=== PATIENT | female | born 1960 | race Caucasian/White ===

== ENCOUNTER 2021-01-01 05:38 | Emergency (ER) | payer SELFPAY ==
--- NOTE | 2021-01-01 05:54 | EDM.PDOC ---
<AlisaBrian Maria Luisa - Last Filed: 01/01/21 06:06> ED HPI GENERAL MEDICAL PROBLEM - General Chief Complaint: General Stated Complaint: [facility] Time Seen by Provider: 01/01/21 05:53 - History of Present Illness INITIAL COMMENTS - FREE TEXT/NARRATIVE: 60-year-old female highly intoxicated brought in by EMS. Apparently the patient was found in the hallway of the apartment complex where she resides. She denies pain at this time. Not much else is known about her situation. Nursing obtained limited history from her brother in [place]. She has a distant history of alcoholism. No routine medications no allergies. When asked questions she will not answer any meaningful way. - Related Data Allergies Allergy/AdvReac Type Severity Reaction Status Date / Time No Known Allergies Allergy Verified 01/01/21 06:02 Home Meds: Home Meds . [No Known Home Meds] 01/01/21 [History] ED ROS GENERAL - Review of Systems Review Of Systems: See Below Reason Not Obtained: Not obtainable due to intoxication ED EXAM, GENERAL - Physical Exam Exam: See Below Exam Limited By: Intoxication General Appearance: No Apparent Distress, Other (The patient does not want much of an exam done.) Head: Other (Several facial abrasions) Neck: Normal Inspection, Supple Respiratory/Chest: No Respiratory Distress, Lungs Clear, Normal Breath Sounds Cardiovascular: Regular Rate, Rhythm, No Edema, No Murmur GI/Abdominal: Normal Bowel Sounds, Soft, Non-Tender Back Exam: No: CVA Tenderness (L), CVA Tenderness (R), Vertebral Tenderness Departure - Departure Disposition: Against Medical Advice 07 Clinical Impression: Acute alcohol intoxication Qualifiers: Complication of substance-induced condition: uncomplicated Qualified Code(s): F10.920 - Alcohol use, unspecified with intoxication, uncomplicated Fall Qualifiers: Encounter type: initial encounter Qualified Code(s): W19.XXXA - Unspecified fall, initial encounter - Discharge Information Referrals: PCP,Not In Area [Primary Care Provider] - Forms: ED Department Discharge <Venu Ruiz - Last Filed: 01/01/21 08:17> Course - Vital Signs Last Recorded V/S: Last Vital Signs Temp 36.0 C L 01/01/21 05:57 Pulse 88 01/01/21 05:57 Resp 16 01/01/21 05:57 BP 117/73 01/01/21 05:57 Pulse Ox 92 L 01/01/21 05:57 - Orders/Labs/Meds Orders: Active Orders 24 hr Category Date Time Status Lactated Ringers [Ringers, Lactated] 1,000 ml Med 01/01/21 06:15 Active IV ASDIRECTED Medication Orders Lactated Ringer's (Ringers, Lactated) 1,000 mls @ 150 mls/hr IV ASDIRECTED BRANDIE Last Admin: 01/01/21 07:57 Dose: 150 mls/hr Documented by: [id number] Labs: Laboratory Tests 01/01/21 01/01/21 01/01/21 Range/Units 06:00 06:00 06:29 WBC (3.98-10.04) K/mm3 RBC (3.98-5.22) M/mm3 Hgb (11.2-15.7) gm/dl Hct (34.1-44.9) % MCV (79.4-94.8) fl MCH (25.6-32.2) pg MCHC (32.2-35.5) g/dl RDW Std Deviation (36.4-46.3) fL Plt Count (182-369) K/mm3 MPV (9.4-12.3) fl Neut % (Auto) (34.0-71.1) % Lymph % (Auto) (19.3-51.7) % [place] % (Auto) (4.7-12.5) % Eos % (Auto) (0.7-5.8) Baso % (Auto) (0.1-1.2) % Neut # (Auto) (1.56-6.13) K/mm3 Lymph # (Auto) (1.18-3.74) K/mm3 [place] # (Auto) (0.24-0.36) K/mm3 Eos # (Auto) (0.04-0.36) K/mm3 Baso # (Auto) (0.01-0.08) K/mm3 PT 10.6 (9.7-12.0) SECONDS INR 0.99 Sodium (136-145) mEq/L Potassium (3.5-5.1) mEq/L Chloride (98-107) mEq/L Carbon Dioxide (21-32) mEq/L Anion Gap (5-15) BUN (7-18) mg/dL Creatinine (0.55-1.02) mg/dL Est Cr Clr Drug Dosing Estimated GFR (MDRD) (>60) mL/min BUN/Creatinine Ratio (14-18) Glucose (70-99) mg/dL Calcium (8.5-10.1) mg/dL Total Bilirubin (0.2-1.0) mg/dL AST (15-37) U/L ALT (14-59) U/L Alkaline Phosphatase (46-116) U/L Total Protein (6.4-8.2) g/dl Albumin (3.4-5.0) g/dl Globulin gm/dL Albumin/Globulin Ratio (1-2) Urine Color Yellow (Yellow) Urine Appearance Clear (Clear) Urine pH 6.0 (5.0-8.0) Ur Specific [place] 1.015 (1.005-1.030) Urine Protein Negative (Negative) Urine Glucose (UA) Negative (Negative) Urine Ketones Negative (Negative) Urine Occult Blood Trace-intact H (Negative) Urine Nitrite Positive H (Negative) Urine Bilirubin Negative (Negative) Urine Urobilinogen 0.2 (0.2-1.0) Ur Leukocyte Esterase 1+ H (Negative) Urine RBC 0-5 (0-5) /hpf Urine WBC 10-20 H (0-5) /hpf Ur Squamous Epith Cells 0-5 (0-5) /hpf Amorphous Sediment Moderate H (NOT SEEN) /hpf Urine Bacteria Moderate H (FEW) /hpf Urine Mucus Few (FEW) /hpf Urine Opiates Screen Negative (SNAZKN=552) Ur Buprenorphine Scrn Negative (CUTOFF=10) Ur Oxycodone Screen Negative (NJL3OQ=374) Urine Methadone Screen Negative (GRVJKI=625) Ur Propoxyphene Screen Negative (SUCEXQ=518) Ur Barbiturates Screen Negative (OBWVXA=466) Ur Tricyclics Screen Negative (BKWTNF=980) Ur Phencyclidine Scrn Negative (CUTOFF=25) Ur Amphetamine Screen Negative (OOMSRG=569) U Methamphetamines Scrn Negative (MLVCQP=087) U Benzodiazepines Scrn Negative (FVOLYA=626) U Cocaine Metab Screen Negative (YHLCWN=562) U Marijuana (THC) Screen Negative (CUTOFF=50) Ethyl Alcohol (0.00) gm% 01/01/21 01/01/21 Range/Units 06:29 06:29 WBC 10.93 H (3.98-10.04) K/mm3 RBC 4.53 (3.98-5.22) M/mm3 Hgb 13.8 (11.2-15.7) gm/dl Hct 41.5 (34.1-44.9) % MCV 91.6 (79.4-94.8) fl MCH 30.5 (25.6-32.2) pg MCHC 33.3 (32.2-35.5) g/dl RDW Std Deviation 45.3 (36.4-46.3) fL Plt Count 354 (182-369) K/mm3 MPV 8.8 L (9.4-12.3) fl Neut % (Auto) 62.4 (34.0-71.1) % Lymph % (Auto) 31.8 (19.3-51.7) % [place] % (Auto) 4.1 L (4.7-12.5) % Eos % (Auto) 0.8 (0.7-5.8) Baso % (Auto) 0.7 (0.1-1.2) % Neut # (Auto) 6.81 H (1.56-6.13) K/mm3 Lymph # (Auto) 3.48 (1.18-3.74) K/mm3 [place] # (Auto) 0.45 H (0.24-0.36) K/mm3 Eos # (Auto) 0.09 (0.04-0.36) K/mm3 Baso # (Auto) 0.08 (0.01-0.08) K/mm3 PT (9.7-12.0) SECONDS INR Sodium 145 (136-145) mEq/L Potassium 3.4 L (3.5-5.1) mEq/L Chloride 109 H (98-107) mEq/L Carbon Dioxide 22 (21-32) mEq/L Anion Gap 17.4 H (5-15) BUN 6 L (7-18) mg/dL Creatinine 0.7 (0.55-1.02) mg/dL Est Cr Clr Drug Dosing TNP Estimated GFR (MDRD) > 60 (>60) mL/min BUN/Creatinine Ratio 8.6 L (14-18) Glucose 90 (70-99) mg/dL Calcium 7.5 L (8.5-10.1) mg/dL Total Bilirubin 0.1 L (0.2-1.0) mg/dL AST 13 L (15-37) U/L ALT 13 L (14-59) U/L Alkaline Phosphatase 83 (46-116) U/L Total Protein 7.2 (6.4-8.2) g/dl Albumin 3.5 (3.4-5.0) g/dl Globulin 3.7 gm/dL Albumin/Globulin Ratio 1.0 (1-2) Urine Color (Yellow) Urine Appearance (Clear) Urine pH (5.0-8.0) Ur Specific [place] (1.005-1.030) Urine Protein (Negative) Urine Glucose (UA) (Negative) Urine Ketones (Negative) Urine Occult Blood (Negative) Urine Nitrite (Negative) Urine Bilirubin (Negative) Urine Urobilinogen (0.2-1.0) Ur Leukocyte Esterase (Negative) Urine RBC (0-5) /hpf Urine WBC (0-5) /hpf Ur Squamous Epith Cells (0-5) /hpf Amorphous Sediment (NOT SEEN) /hpf Urine Bacteria (FEW) /hpf Urine Mucus (FEW) /hpf Urine Opiates Screen (XXELYD=492) Ur Buprenorphine Scrn (CUTOFF=10) Ur Oxycodone Screen (NGW4JL=312) Urine Methadone Screen (GFXZQL=179) Ur Propoxyphene Screen (VUWLFN=320) Ur Barbiturates Screen (JXRMIH=362) Ur Tricyclics Screen (ASSDGT=922) Ur Phencyclidine Scrn (CUTOFF=25) Ur Amphetamine Screen (VNMIGF=458) U Methamphetamines Scrn (FWOBEX=023) U Benzodiazepines Scrn (ITBFBB=381) U Cocaine Metab Screen (ZOSXTG=011) U Marijuana (THC) Screen (CUTOFF=50) Ethyl Alcohol 0.41 (0.00) gm% Meds: Medications Generic Name Dose Route Start Last Admin Trade Name Freq PRN Reason Stop Dose Admin Lactated Ringer's 1,000 mls @ 150 mls/hr 01/01/21 06:15 01/01/21 07:57 Ringers, Lactated IV 150 mls/hr ASDIRECTED BRANDIE Administration Discontinued Medications Generic Name Dose Route Start Last Admin Trade Name Freq PRN Reason Stop Dose Admin Lactated Ringer's 1,000 mls @ 999 mls/hr 01/01/21 06:02 01/01/21 06:34 Ringers, Lactated IV 01/01/21 07:02 999 mls/hr .BOLUS ONE Administration Ondansetron HCl 4 mg 01/01/21 06:02 01/01/21 06:34 Ondansetron 4 Mg/2 Ml Sdv IVPUSH 01/01/21 06:03 4 mg ONETIME ONE Administration - Re-Assessments/Exams Free Text/Narrative Re-Assessment/Exam: 01/01/21 08:13 Care has been assumed from at change of shift. Patient had been sleeping since admission to the ED. She awoke her short time ago and pulled out her IV and is declaring that she is leaving the department. There is no reason to keep her in the ED as she is intoxicated by alcohol only. She is walking around in her room. She is alert oriented and answering questions appropriately. CT of the head reviewed shows ventricles along with the basal cisterns and sulci over the convexities are slightly prominent. No abnormal parenchymal densities are seen. No evidence of intracranial hemorrhage is seen. No midline shift or mass-effect is noted. Bone window settings were reviewed. Visualized paranasal sinuses and mastoid sinuses show nothing acute. Departure - Departure Time of Disposition: 08:16 Condition: Fair Sepsis Event Note (ED) - Focused Exam Vital Signs: Vital Signs Temp Pulse Resp BP Pulse Ox 01/01/21 05:57 36.0 C L 88 16 117/73 92 L
[2021-01-01] MEDS ORDERED: Lactated Ringers 1,000 ML IV ONE (06:02)
[2021-01-01] MEDS ORDERED: Ondansetron 4 MG/2 ML SDV IVPUSH ONE (06:02)
[2021-01-01] MEDS ORDERED: Lactated Ringers 1,000 ML IV SCH (06:15)
--- NOTE | 2021-01-01 08:06 | CT ---
Head CT Technique: Multiple axial sections through the brain were obtained. Intravenous contrast was not utilized. Reconstructed coronal and sagittal images were obtained. Comparison: No prior intracranial imaging is available. Findings: Ventricles along with basal cisterns and sulci over the convexities are slightly prominent. No abnormal parenchymal densities are seen. No evidence of intracranial hemorrhage is seen. No midline shift or mass-effect is seen. Bone window settings were reviewed. Visualized paranasal sinuses and mastoid sinuses show nothing acute. No acute calvarial abnormality is appreciated. Impression: 1. Minimal atrophy. 2. No acute intracranial abnormality is appreciated. Diagnostic code #2
== END 2021-01-01 08:15 | disposition left against medical advice (07) ==
LOC: JD.ED 05:38
DX: S00.81XA Abrasion of other part of head, initial encounter (principal); F10.120 Alcohol abuse with intoxication, uncomplicated; Y90.0 Blood alcohol level of less than 20 mg/100 ml; W19.XXXA Unspecified fall, initial encounter
CPT/HCPCS: 36415; 70450; 80053; 80306; 80307; 81001; 85025; 85610; 96374; 99285; J2405; J7120; 99284

== ENCOUNTER 2021-01-01 16:18 | Emergency (ER) | payer SELFPAY ==
[2021-01-01] MEDS ORDERED: Sodium Chloride 0.9% 1,000 ML IV ONE (16:37)
[2021-01-01] MEDS ORDERED: Metoclopramide 10 MG/2 ML SDV ONE (16:51)
[2021-01-01] MEDS ORDERED: LORazepam 2 MG/ML SDV ONE (16:53)
[2021-01-01] MEDS ORDERED: Metoclopramide 10 MG/2 ML SDV IVPUSH ONE (16:55)
[2021-01-01] MEDS ORDERED: LORazepam 2 MG/ML SDV IV PRN (16:55)
--- NOTE | 2021-01-01 16:57 | EDM.PDOCBH ---
<Brian Cuellar - Last Filed: 01/02/21 05:18> ED HPI GENERAL MEDICAL PROBLEM - General Chief Complaint: Drug or Alcohol Abuse Stated Complaint: [facility] Time Seen by Provider: 01/01/21 16:20 - Related Data Allergies Allergy/AdvReac Type Severity Reaction Status Date / Time No Known Allergies Allergy Verified 01/01/21 06:02 Home Meds: Home Meds . [No Known Home Meds] 01/01/21 [History] COURSE, BEHAVIORAL HEALTH COMP - Course Medical Clearance: 01/02/21 05:11 Patient is awake and alert she was only able to sleep it off and sober up she would like to be discharged now. I have advised the patient against drinking. Departure - Departure Time of Disposition: 05:18 Disposition: Home, Self-Care 01 Clinical Impression: Alcohol abuse - Discharge Information Instructions: Alcohol Use Disorder Referrals: PCP,None [Primary Care Provider] - Forms: ED Department Discharge Additional Instructions: Return to the emergency room with any questions problems or worsening symptoms. See a counselor for this alcoholism. Follow-up at the hospital clinic for recheck early next week. <Venu Ruiz - Last Filed: 01/02/21 06:53> ED HPI GENERAL MEDICAL PROBLEM - General Source of Information: Reports: Patient History Limitations: Reports: No Limitations - History of Present Illness INITIAL COMMENTS - FREE TEXT/NARRATIVE: 60-year-old female once again presents to the ED per [facility]. Apparently she was found passed out or unresponsive near her apartment building today. Note the patient was in the ED overnight due to acute alcohol intoxication and found passed out in the hallway of her apartment where she resides apparently. She has been drinking large quantities of alcohol on a daily basis. Her affect is up and down and she complains bitterly that she is so sad due to recent loss of brother and other friends. She left to the emergency room about 0900 hrs. this morning after she awoke and ripped out her IV with blood all over the room and herself. We cannot detain her as she did not present as a danger to herself or others. Her blood alcohol early this mo rning was 0.41 g%. She reports that she has drank about a pint of whiskey since leaving the department. She denies any nausea vomiting. She denies recently having anything to eat or drink. She denies any hematemesis. She does have chronic loose stools from chronic alcohol use. There is no outward signs of head or facial trauma. Onset: Unknown/Unsure (History suggest she drinks alcohol in large quantities on a daily basis.) Duration: Chronic (Cute on chronic alcohol intoxication.) Location: Reports: Other (Generalized weakness due to intoxication by alcohol.) Quality: Reports: Other Severity: Severe (Dr. Intoxication by alcohol.) Improves with: Reports: None Worsens with: Reports: None Context: Reports: Other (Chronic alcohol abuse on the daily basis. Drinks large quantities of whiskey on a daily basis.). Denies: Activity, Exercise, Lifting, Sick Contact, Trauma Associated Symptoms: Reports: Cough, Loss of Appetite, Malaise, Weakness, Other (Chronic loose stools/diarrhea). 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 She does not see a doctor since she cannot afford it.) Past Medical History - Past Health History Medical/Surgical History: Denies Medical/Surgical History - History Comment History Comment: History of chronic daily alcohol use. Prefers whiskey. Social & Family History - Caffeine Use Caffeine Use: Reports: None - Living Situation & Occupation Living situation: Reports: Single, Alone Occupation: Unemployed [facility] - Review of Systems Review Of Systems: See Below Constitutional: Reports: Malaise, Weakness, Fatigue, Decreased Appetite, Weight Loss. Denies: Fever, Chills HEENT: Reports: No Symptoms Respiratory: Reports: No Symptoms Cardiovascular: Reports: No Symptoms. Denies: Chest Pain, Blood Pressure Problem, Claudication, Dyspnea on Exertion, Edema, Lightheadedness, Orthopnea (She states blood pressure is always on the low side), Palpitations Endocrine: Reports: Fatigue GI/Abdominal: Reports: Diarrhea ( 2-3 times daily depending if she eats or not.), Nausea (.), Other (Rare heartburn). Denies: Abdominal Pain, Constipation : Reports: Frequency, Incontinence (There is no incontinence of urine.) Musculoskeletal: Reports: Neck Pain, Shoulder Pain, Back Pain Skin: Reports: No Symptoms Neurological: Reports: Dizziness Psychiatric: Reports: Depression (Complains that she is chronically sad.), Other (Neck alcohol abuse and dependency) Hematologic/Lymphatic: Reports: No Symptoms Immunologic: Reports: No Symptoms ED EXAM, BEHAVIORAL HEALTH - Physical Exam Exam: See Below Exam Limited By: Intoxication (Patient is in is markedly intoxicated by alcohol. Speech is mildly dysarthric and blubbering.) General Appearance: Lethargic, Mild Distress (Anxious and markedly intoxicated by alcohol.), Other (Vital signs show temperature 36.6 degrees. Heart rate 75 and sinus respiratory is 18 with O2 sats of 99% room air. BP 92/57.) Eye Exam: Bilateral Eye: Conjunctival Injection (Mild bilateral conjunctival injection.), Nystagmus (Lateral nystagmus on lateral gaze bilaterally.) Throat/Mouth: Normal Inspection, Normal Lips, Other (Poor dental hygiene.). No: Normal Teeth Head: Atraumatic, Normocephalic, Other (Forward signs of any head trauma. She does have slight bruising of her lateral left eyebrow area supracondylar process which was present this morning.) Neck: No: Carotid Bruit, Lymphadenopathy (L), Lymphadenopathy (R) Respiratory/Chest: No Respiratory Distress, Lungs Clear, Decreased Breath Sounds (Sounds are mildly diminished to both posterior lung charles by 10 to 15%.). No: Rales, Rhonchi ( No adventitial sounds noted), Wheezing Cardiovascular: Normal Peripheral Pulses, Regular Rate, Rhythm, No Edema, No Gallop, No Murmur, No Rub GI/Abdominal: Normal Bowel Sounds, Soft, Non-Tender, No Organomegaly, No Mass, Pelvis Stable, Other (No surgical scars appreciated.) Back Exam: Normal Inspection, Full Range of Motion, Other (Patient is to sit up easily from the lying down position on the gurney.). No: CVA Tenderness (L), CVA Tenderness (R) Extremities: Normal Inspection, Normal Range of Motion, Non-Tender, No Pedal Edema Neurological: Alert, Normal Mood/Affect, CN II-XII Intact, Normal Cognition, Oriented x 3 Psychiatric: Tearful, Agitated (Highly agitated and requesting to leave the department.). No: Normal Cognition, Normal Mood, Oriented (Not oriented to time . She realizes she is in the.) Skin Exam: Warm, Dry, Intact, Normal color, No rash COURSE, BEHAVIORAL HEALTH COMP - Course Vital Signs: Last Vital Signs Temp 36.6 C 01/01/21 19:38 Pulse 75 01/01/21 19:38 Resp 18 01/01/21 19:38 BP 92/57 L 01/01/21 19:38 Pulse Ox 99 01/01/21 19:38 Orders, Labs, Meds: Laboratory Tests 01/01/21 01/01/21 01/01/21 Range/Units 16:29 16:29 16:29 WBC 8.34 (3.98-10.04) K/mm3 RBC 4.55 (3.98-5.22) M/mm3 Hgb 13.9 (11.2-15.7) gm/dl Hct 41.2 (34.1-44.9) % MCV 90.5 (79.4-94.8) fl MCH 30.5 (25.6-32.2) pg MCHC 33.7 (32.2-35.5) g/dl RDW Std Deviation 45.0 (36.4-46.3) fL Plt Count 381 H (182-369) K/mm3 MPV 8.7 L (9.4-12.3) fl Neut % (Auto) 59.9 (34.0-71.1) % Lymph % (Auto) 33.3 (19.3-51.7) % [place] % (Auto) 5.4 (4.7-12.5) % Eos % (Auto) 0.8 (0.7-5.8) Baso % (Auto) 0.4 (0.1-1.2) % Neut # (Auto) 4.99 (1.56-6.13) K/mm3 Lymph # (Auto) 2.78 (1.18-3.74) K/mm3 [place] # (Auto) 0.45 H (0.24-0.36) K/mm3 Eos # (Auto) 0.07 (0.04-0.36) K/mm3 Baso # (Auto) 0.03 (0.01-0.08) K/mm3 APTT 26.8 (21.7-31.4) SECONDS Sodium 147 H (136-145) mEq/L Potassium 3.7 (3.5-5.1) mEq/L Chloride 111 H (98-107) mEq/L Carbon Dioxide 22 (21-32) mEq/L Anion Gap 17.7 H (5-15) BUN 5 L (7-18) mg/dL Creatinine 0.6 (0.55-1.02) mg/dL Est Cr Clr Drug Dosing TNP Estimated GFR (MDRD) > 60 (>60) mL/min BUN/Creatinine Ratio 8.3 L (14-18) Glucose 92 (70-99) mg/dL Calcium 8.1 L (8.5-10.1) mg/dL Magnesium (1.8-2.4) mg/dL Total Bilirubin 0.2 (0.2-1.0) mg/dL GGT (5-55) U/L AST 19 (15-37) U/L ALT 16 (14-59) U/L Alkaline Phosphatase 91 (46-116) U/L Total Protein 7.8 (6.4-8.2) g/dl Albumin 3.9 (3.4-5.0) g/dl Globulin 3.9 gm/dL Albumin/Globulin Ratio 1.0 (1-2) Lipase (73-393) U/L Urine Opiates Screen (DEBEQY=079) Ur Buprenorphine Scrn (CUTOFF=10) Ur Oxycodone Screen (TQP3FI=589) Urine Methadone Screen (JVRWAU=350) Ur Propoxyphene Screen (OIXGKY=320) Ur Barbiturates Screen (DJNAAV=126) Ur Tricyclics Screen (WPMLZJ=154) Ur Phencyclidine Scrn (CUTOFF=25) Ur Amphetamine Screen (PGTTSJ=846) U Methamphetamines Scrn (PKCDCO=743) U Benzodiazepines Scrn (ZFZVSS=266) U Cocaine Metab Screen (VPZCTX=981) U Marijuana (THC) Screen (CUTOFF=50) Ethyl Alcohol 0.37 (0.00) gm% 01/01/21 01/01/21 Range/Units 16:29 17:53 WBC (3.98-10.04) K/mm3 RBC (3.98-5.22) M/mm3 Hgb (11.2-15.7) gm/dl Hct (34.1-44.9) % MCV (79.4-94.8) fl MCH (25.6-32.2) pg MCHC (32.2-35.5) g/dl RDW Std Deviation (36.4-46.3) fL Plt Count (182-369) K/mm3 MPV (9.4-12.3) fl Neut % (Auto) (34.0-71.1) % Lymph % (Auto) (19.3-51.7) % [place] % (Auto) (4.7-12.5) % Eos % (Auto) (0.7-5.8) Baso % (Auto) (0.1-1.2) % Neut # (Auto) (1.56-6.13) K/mm3 Lymph # (Auto) (1.18-3.74) K/mm3 [place] # (Auto) (0.24-0.36) K/mm3 Eos # (Auto) (0.04-0.36) K/mm3 Baso # (Auto) (0.01-0.08) K/mm3 APTT (21.7-31.4) SECONDS Sodium (136-145) mEq/L Potassium (3.5-5.1) mEq/L Chloride (98-107) mEq/L Carbon Dioxide (21-32) mEq/L Anion Gap (5-15) BUN (7-18) mg/dL Creatinine (0.55-1.02) mg/dL Est Cr Clr Drug Dosing Estimated GFR (MDRD) (>60) mL/min BUN/Creatinine Ratio (14-18) Glucose (70-99) mg/dL Calcium (8.5-10.1) mg/dL Magnesium 1.8 (1.8-2.4) mg/dL Total Bilirubin (0.2-1.0) mg/dL GGT 17 (5-55) U/L AST (15-37) U/L ALT (14-59) U/L Alkaline Phosphatase (46-116) U/L Total Protein (6.4-8.2) g/dl Albumin (3.4-5.0) g/dl Globulin gm/dL Albumin/Globulin Ratio (1-2) Lipase 113 (73-393) U/L Urine Opiates Screen Negative (UVUBXI=957) Ur Buprenorphine Scrn Negative (CUTOFF=10) Ur Oxycodone Screen Negative (GFM2VQ=023) Urine Methadone Screen Negative (DFLSAN=812) Ur Propoxyphene Screen Negative (JSHUZT=816) Ur Barbiturates Screen Negative (OMTLOL=715) Ur Tricyclics Screen Negative (PFXMHJ=167) Ur Phencyclidine Scrn Negative (CUTOFF=25) Ur Amphetamine Screen Negative (EEBRMG=529) U Methamphetamines Scrn Negative (MCLUZL=419) U Benzodiazepines Scrn Negative (ZDXUFW=170) U Cocaine Metab Screen Negative (FGARIU=741) U Marijuana (THC) Screen Negative (CUTOFF=50) Ethyl Alcohol (0.00) gm% Medications Discontinued Medications Generic Name Dose Route Start Last Admin Trade Name Freq PRN Reason Stop Dose Admin Sodium Chloride 1,000 mls @ 999 mls/hr 01/01/21 16:37 01/01/21 16:43 Normal Saline IV 01/01/21 17:37 999 mls/hr ONETIME ONE Administration Dextrose/Sodium Chloride 1,000 mls @ 150 mls/hr 01/01/21 17:00 01/01/21 18:04 Dextrose 5%-Normal Saline IV 150 mls/hr ASDIRECTED BRANDIE Administration Lorazepam Confirm 01/01/21 16:53 01/01/21 16:58 Lorazepam 2 Mg/Ml Sdv Administered 01/01/21 16:54 Not Given Dose 2 mg .ROUTE .STK-MED ONE Lorazepam 1 mg 01/01/21 16:55 01/01/21 16:58 Lorazepam 2 Mg/Ml Sdv IV 1 mg Q6H PRN Administration Anxiety Metoclopramide HCl Confirm 01/01/21 16:51 01/01/21 16:57 Metoclopramide 10 Mg/2 Ml Sdv Administered 01/01/21 16:52 Not Given Dose 10 mg .ROUTE .STK-MED ONE Metoclopramide HCl 10 mg 01/01/21 16:55 01/01/21 16:57 Metoclopramide 10 Mg/2 Ml Sdv IVPUSH 01/01/21 16:56 10 mg ONETIME ONE Administration Re-Assessment/Re-Exam: 60-year-old female once again presents to the ED per [facility]. Apparently she was found passed out again unclear exactly where but it sounds like outside of her apartment building. She was in the ED overnight after being found passed out in the hallway of her apartment where apparently she resides. Blood alcohol this morning was 0.41 g%. She was sleeping in the ED when I came on shift. Approximately 0900 to 0930 hrs she awoke abruptly ripped out her IV with blood spraying all over her and the room. She mended that she was leaving the ED and there was no to keep her in the ED at this time. She left the department is unclear how she got back to her apartment. At this time there is no outward signs of trauma. She will be started on D5 normal saline at 150 mils per hour. Routine labs including blood alcohol to be obtained. She will be given Reglan 10 mg IV and Ativan 1 mg IV for sedation to allow her to d etox in the ED without leaving the department abruptly and having to return again due to significant alcohol intoxication. Re-Assessment/Re-Exam Date: 01/01/21 (Count at present is 8.34. Differential shows 60% neutrophils. Hemoglobin is 13.9 with hematocrit of 41.2. MCV is 90.5 suggesting she is not been drinking alcohol for a long period of time. Platelet count is mildly elevated at 381,000. PTT is 26.8. Normal. Sodium mildly elevated at 147 with potassium of 3.7. Chloride is 111 with a bicarb of 22. Anion gap is elevated at 17.7. BUN was 5 with a creatinine of 0.6 and a GFR greater than 60. Glucose is 92 with a calcium of 8.1. Magnesium is 1.8. Liver function is essentially normal. Alkaline phosphatase is 91. Total protein is 7.8. Albumin fraction is 3.9. Lipase was 113. Urinalysis was negative. Blood alcohol is currently 0.37 g%.) Re-Assessment/Re-Exam Time: 20:02 ( Care will be transferred to Dr. Cuellar as it is change of shift. She will remain in the department till she detoxes from alcohol to some degree and is competent to leave the department walking and talking.) Sepsis Event Note (ED) - Focused Exam Vital Signs: Vital Signs Temp Pulse Resp BP Pulse Ox 01/01/21 19:38 36.6 C 75 18 92/57 L 99
[2021-01-01] MEDS ORDERED: Dextrose 5%-0.9% NaCl 1,000 ML IV SCH (17:00)
== END 2021-01-02 05:28 | disposition home or self-care (01) ==
LOC: JD.ED 16:18
DX: F10.129 Alcohol abuse with intoxication, unspecified (principal)
CPT/HCPCS: 36415; 80053; 80306; 80307; 82977; 83690; 83735; 85025; 85730; 96374; 96375; 99284; J2060; J2765; J7030; J7042; 99283